=== PATIENT | female | born 1950 | race Caucasian/White ===

== ENCOUNTER 2019-01-20 13:55 | Outpatient (CLI) | payer MEDICARE, OTHER ==
--- NOTE | 2019-01-27 11:59 | MMO ---
Bilateral MAMMO Bilat Screen [facility]. CLINICAL HISTORY: Patient is 68 years old and is seen for screening. The patient has no family history of breast cancer. The patient has a history of malignant (generic) in the left breast at age 45. The patient has a history of left needle biopsy at age 45 - malignant, left Lumpectomy at age 45 - malignant and right Breast reduction at age 45. VIEWS: The views performed were: bilateral craniocaudal with tomosynthesis and bilateral mediolateral oblique with tomosynthesis. FILMS COMPARED: The present examination has been compared to a prior imaging study performed at [facility] on 02/17/2017. This study has been interpreted with the assistance of computer-aided detection. MAMMOGRAM FINDINGS: There are scattered fibroglandular densities. There are stable post operative changes seen in the left breast. There are no suspicious masses, suspicious calcifications, or new areas of architectural distortion. IMPRESSION: THERE IS NO MAMMOGRAPHIC EVIDENCE OF MALIGNANCY. A ROUTINE FOLLOW-UP MAMMOGRAM IN 1 YEAR IS RECOMMENDED. THE RESULTS OF THIS EXAM WERE SENT TO THE PATIENT. ACR BI-RADS Category 2 - Benign finding MAMMOGRAPHY NOTE: 1. A negative mammogram report should not delay a biopsy if a dominant of clinically suspicious mass is present. 2. Approximately 10% to 15% of breast cancers are not detected by mammography. 3. Adenosis and dense breasts may obscure an underlying neoplasm. Reported by: PRASHANT FISH MD Electonically Signed: [id number]
== END 2019-01-20 13:56 | disposition home or self-care (01) ==
LOC: BICMAMMO 13:55
PROVIDERS: ATTEND Family Medicine
DX: Z12.31 Encounter for screening mammogram for malignant neoplasm of breast (principal); Z85.3 Personal history of malignant neoplasm of breast; Z98.890 Other specified postprocedural states
CPT/HCPCS: 77063; 77067

== ENCOUNTER 2019-04-08 09:37 | Outpatient (CLI) | payer MEDICARE, OTHER ==
--- NOTE | 2019-04-08 12:32 | RAD ---
Upper GI series single column: DATE: 68-year-old female with dysphagia, unspecified type. Previous bariatric surgery x2, reportedly a vert ical sleeve gastrectomy later revised to a Elizabeth-en-Y. Surgical planning for revision. TECHNIQUE: Upright administration of thin liquid barium. Multiple fluoroscopic spot images in multiple positions . FINDINGS: [employer] view demonstrates large number of surgical clips in the left upper quadrant of the abdomen. Eso phagus has normal distensibility, with no high-grade stricture. The barium passes through a small gastric lumen, and then immediately into a nondilated Elizabeth limb. There is no leakage or obstruction. More distal jejunal nondilated loops of bowel are also visualized. IMPRESSION: Status post bariatric surgery, Elizabeth-en-Y. No evidence of complications.
== END 2019-04-08 09:38 | disposition home or self-care (01) ==
LOC: RAD 09:37
PROVIDERS: ATTEND Family Medicine
DX: R13.10 Dysphagia, unspecified (principal); Z98.84 Bariatric surgery status
CPT/HCPCS: 74246